=== PATIENT | male | born 1955 | race Asian ===

== ENCOUNTER → 2022-05-02 | Day surgery (SDC) | payer OTHER ==
[~2022-05-02] MED LIST: HYOSCYAMINE SULFATE 0.5 MG/ML INJ ONE; LIDOCAINE HCL 2% LOCAL INJ 5 ML SDV VIAL INJ ONE; LOSARTAN POTASS25 MG PO; POVIDONE IODINE 0.05% 0.05 % ML PO ONE; PROPOFOL IV EMULSION 10 MG/ML 20 ML VIAL ONE
[2022-05-02 10:31] VITALS: BP 127/88
== END | disposition home or self-care (01) ==
LOC: OR 07:33
PROVIDERS: ATTEND Internal Medicine Gastroenterology
DX: Z12.11 Encounter for screening for malignant neoplasm of colon (principal); D12.8 Benign neoplasm of rectum; K63.89 Other specified diseases of intestine; K57.30 Diverticulosis of large intestine without perforation or abscess without bleeding; K64.8 Other hemorrhoids; R10.13 Epigastric pain; B18.0 Chronic viral hepatitis B with delta-agent; Z01.810 Encounter for preprocedural cardiovascular examination; Z79.899 Other long term (current) drug therapy; Z68.27 Body mass index [BMI] 27.0-27.9, adult
CPT/HCPCS: 45378; 45380; 93005; J1980; J2001